=== PATIENT | male | born 1960 | race Caucasian/White ===

== ENCOUNTER 2020-05-18 13:03 | Outpatient (REF) | payer MEDICARE, MEDICAID, SELFPAY ==
[2020-05-18 13:54] LABS: Monocytes Percent Auto 9.1 % (2-11); PLT CLUMP 1; Red Cell Distribution Width 12.4 % (11.0-16.0); SCAN SMEAR FLAG 1
[2020-05-18 13:56] LABS: Basophils Percent Auto 0.5 % (0-2); Eosinophils Absolute Auto 0.2 X10*3/uL (0.0-0.4); Eosinophils Percent Auto 2.4 % (0-4); Hemoglobin 14.9 g/dl (14.0-18.0); Imm Gran Abs Auto 0.04 X10*3/uL (0.00-0.03); Imm Gran Pct Auto 0.5 % (0.0-0.4); Lymphocytes Absolute Auto 1.6 X10*3/uL (1.2-4.9); Lymphocytes Percent Auto 19.5 % (20-40); Mean Corpuscular HGB Conc 33.9 g/dl (31.0-36.0); Mean Corpuscular Hemoglobin 35.6 pg (27.0-33.0); Mean Corpuscular Volume 105.3 fL (80-98); Mean Platelet Volume 11.2 fL (9.4-12.4); Monocytes Absolute Auto 0.8 X10*3/uL (0.1-1.2); Neutrophils Absolute Auto 5.6 X10*3/uL (2.0-8.3); Platelet Count 143 X10*3/uL (160-400); Red Blood Count 4.18 X10*6/uL (4.60-5.80); White Blood Count 8.2 X10*3/uL (4.8-10.8)
[2020-05-18 14:13] LABS: Ethanol < 10 mg/dL
[2020-05-18 14:23] LABS: Alanine Aminotransferase 21 U/L (0-40); Albumin Level 4.6 g/dL (3.5-5.0); Alkaline Phosphatase 125 U/L (39-117); Anion Gap 13 (12-20); Aspartate Amino Transferase 27 U/L (5-37); Bilirubin Total 0.6 mg/dL (0.0-1.0); Blood Urea Nitrogen 17 mg/dL (9-16); C Reactive Protein 0.73 mg/dL (< or = 0.50); Carbon Dioxide 28 mmol/L (22-29); Chloride 105 mmol/L (96-108); Estimated Glomerular Filt Rate > 60; Glucose Random 101 mg/dL (60-115); Potassium 5.1 mmol/l (3.3-5.1); Sodium 141 mmol/L (135-145); Total Protein 7.4 g/dL (6.5-8.0)
[2020-05-18 14:33] LABS: Calcium 10.3 mg/dL (8.4-10.2)
== END 2020-05-18 13:04 | disposition home or self-care (01) ==
LOC: HO.10HDL 13:03
PROVIDERS: Visit Provider Internal Medicine
DX: K21.9 Gastro-esophageal reflux disease without esophagitis (principal); I10 Essential (primary) hypertension; K57.90 Diverticulosis of intestine, part unspecified, without perforation or abscess without bleeding
CPT/HCPCS: 36415; 80053; 80320; 85025; 86140

== ENCOUNTER 2020-08-02 14:03 | Outpatient (REF) | payer MEDICARE, MEDICAID, SELFPAY ==
--- NOTE | 2020-08-02 | XR_ITS ---
EXAMINATION: XR SHOULDER, LEFT CLINICAL INFORMATION: Left shoulder pain. COMPARISON: None TECHNIQUE: AP external rotation, Grashey, scapular Y, and axillary views of the left shoulder. FINDINGS: There is a transverse fracture left mid scapula extending to the glenoid surface. There is no visible acute fracture or dislocation seen. The soft tissues are normal. XR/XR shoulder LT min 2V IMPRESSION: Transverse complete fracture involving the left mid clavicle extending to the glenoid surface. No additional abnormality seen.
[2020-08-06 09:48] LABS: Free Prostate Spec Ag 0.2 ng/mL; Percent Free Prostate Spec Ag 20 % (calc) (>25)
== END 2020-08-02 14:04 | disposition home or self-care (01) ==
LOC: HO.HMGCX 14:03
PROVIDERS: PCP Internal Medicine; Visit Provider Urology
DX: M25.512 Pain in left shoulder (principal); R97.20 Elevated prostate specific antigen [PSA]; Z12.5 Encounter for screening for malignant neoplasm of prostate
CPT/HCPCS: 73030; 84153; 84154

== ENCOUNTER 2020-09-28 12:27 | Outpatient (REF) | payer MEDICARE, MEDICAID, SELFPAY ==
[2020-09-28 13:12] LABS: MANUAL DIFF FLAG NO
[2020-09-28 13:18] LABS: Basophils Percent Auto 0.5 % (0-2); Eosinophils Absolute Auto 0.1 X10*3/uL (0.0-0.4); Eosinophils Percent Auto 1.8 % (0-4); Hematocrit 46.8 % (42-52); Hemoglobin 16.2 g/dl (14.0-18.0); Imm Gran Abs Auto 0.02 X10*3/uL (0.00-0.03); Imm Gran Pct Auto 0.3 % (0.0-0.4); Lymphocytes Absolute Auto 1.3 X10*3/uL (1.2-4.9); Lymphocytes Percent Auto 20.7 % (20-40); Mean Corpuscular HGB Conc 34.6 g/dl (31.0-36.0); Mean Corpuscular Hemoglobin 35.4 pg (27.0-33.0); Mean Corpuscular Volume 102.2 fL (80-98); Mean Platelet Volume 9.8 fL (9.4-12.4); Monocytes Absolute Auto 0.7 X10*3/uL (0.1-1.2); Monocytes Percent Auto 11.1 % (2-11); Neutrophils Percent Auto 65.6 % (45-73); Platelet Count 143 X10*3/uL (160-400); Red Blood Count 4.58 X10*6/uL (4.60-5.80); Red Cell Distribution Width 12.4 % (11.0-16.0)
[2020-09-28 13:48] LABS: Alanine Aminotransferase 33 U/L (0-40); Albumin Level 4.7 g/dL (3.5-5.0); Alkaline Phosphatase 124 U/L (39-117); Anion Gap 14 (12-20); Aspartate Amino Transferase 30 U/L (5-37); Bilirubin Total 0.5 mg/dL (0.0-1.0); Blood Urea Nitrogen 25 mg/dL (9-16); Calcium 9.8 mg/dL (8.4-10.2); Carbon Dioxide 25 mmol/L (22-29); Chloride 107 mmol/L (96-108); Estimated Glomerular Filt Rate > 60; Glucose Random 104 mg/dL (60-115); Potassium 4.7 mmol/L (3.3-5.1); Sodium 141 mmol/L (135-145); Total Protein 7.5 g/dL (6.5-8.0)
== END 2020-09-28 12:28 | disposition home or self-care (01) ==
LOC: HO.LAB 12:27
PROVIDERS: PCP Internal Medicine; Visit Provider Internal Medicine
DX: J44.9 Chronic obstructive pulmonary disease, unspecified (principal); I10 Essential (primary) hypertension
CPT/HCPCS: 36415; 80053; 85025

== ENCOUNTER 2020-10-08 07:59 | Day surgery (SDC) | payer MEDICARE, MEDICAID, SELFPAY ==
[2020-10-04 11:53] VITALS: BMI 20.1
--- NOTE | 2020-10-04 12:38 | HP_ITS ---
DATE OF SERVICE: 10/08/2020 HISTORY OF PRESENT ILLNESS: The patient is a 60-year-old male, who is seen in the office for preop evaluation prior to right eye glaucoma surgery scheduled with Dr. Miles. REVIEW OF SYSTEMS: The patient has lost 6 pounds. No fevers or chills. No headaches or dizziness. No palpitations or chest pain. He does cough and wheeze. He does smoke. He denies shortness of breath. He does have some heartburn. No complaints of nausea, vomiting, diarrhea, or abdominal pain. No dysuria. Some joint pains, especially left elbow bursitis. Speech is normal. No confusion. He does have anxiety. Sleep and appetite are normal. He has seasonal allergies. No complaints of skin rashes. PAST MEDICAL HISTORY: Significant for alcoholism, tobacco use, COPD, diverticulosis with a history of diverticular surgery, anxiety, tremor, gastroesophageal reflux disease, BPH, abdominal hernias, and hay fever, history of left clavicle fracture, insomnia, some anemia, low platelet count of 143 on last count. ALLERGIES: HE LISTS AN ALLERGY TO LEVAQUIN. PRESENT MEDICATIONS: Tamsulosin 0.4 mg, Zetia 10 mg, atorvastatin 80 mg, gemfibrozil 600 mg twice a day, Symbicort 160 one puff twice a day, lamotrigine prescribed by Neurology, Spiriva 1 puff once a day, sertraline 50 mg 1-1/2 a day and the dose may have been adjusted to 150. FAMILY HISTORY: Please see record. SOCIAL HISTORY: He lives alone. He has worked as a palm. PHYSICAL EXAMINATION: GENERAL: He is awake and alert, in no distress. VITAL SIGNS: Temperature 98.8, pulse 73, respirations 12, blood pressure 112/62, O2 sats 96%. Weight is 125, down 6 pounds from the last visit. Height is 5 feet 4 inches. He is well nourished, in no distress. HEENT: Pupils are equal. TMs clear. Pharynx clear. NECK: Supple. No lymph nodes, bruits, or masses. HEART: Sounds, regular rate. LUNGS: Clear, but distant. ABDOMEN: Soft, nontender. He has multiple incisional hernias in the abdominal wall. EXTREMITIES: No clubbing, cyanosis, or edema. He is awake and alert. Cranial nerves are intact. ASSESSMENT AND PLAN: 1. Preop right eye glaucoma surgery, medically stable. 2. Alcoholism. Denies drinking at this time, but not always reliable. 3. Tobacco abuse, chronic. 4. Chronic obstructive pulmonary disease, stable. 5. Diverticulosis, history of surgery. 6. Anxiety, chronic. 7. Weight loss. Follow. 8. Tremor, improved. 9. Gastroesophageal reflux disease, on Prilosec. 10. Benign prostatic hypertrophy, on Flomax. 11. Abdominal incisional hernias. No complaints of pain. 12. Seasonal allergies, [id number] medicines. 13. History of left clavicle fracture. 14. Insomnia. Follow. He completed labs on September 28. Normal electrolytes. BUN 25, creatinine 1, sugar 104. Liver enzymes normal. Alkaline phosphatase 124, albumin 4.7. CBC shows a white count of 6, hemoglobin 16.2, hematocrit 46.8, platelets 143. EKG completed in the office on September 28 shows sinus rhythm, no ischemic changes and appears within normal limits. He is medically stable for the proposed procedure. I will be available if there are any medical issues. Demario Lainez MD FC/MODL / [id number]
--- NOTE | 2020-10-05 13:07 | MHC.SHP ---
Pre-Procedural Eval Section A The patient is an INPATIENT: No The History & Physical has been completed within 30 days and I have reviewed it.: Yes Section B Chief Complaint: Cataract Right Eye Allergies: Allergies Allergy/AdvReac Type Severity Reaction Status Date / Time levofloxacin [From LEVAQUIN] Allergy Severe SEVERE Verified 10/04/20 12:00 PAIN/MUSCLE ACHES METAL Allergy Intermediate SEVERE Uncoded 04/19/20 14:42 ITCHING, REDNESS ENVIRONMENTAL Allergy Mild STUFFY Uncoded 04/19/20 14:42 NOSE, ITCHY Plan Diagnosis/Plan: Unchanged I have reviewed the history and physical and performed a pertinent physical examination on my patient. No changes have occurred unless specified.
[2020-10-08 09:22] VITALS: BP 145/84; PULSE 63; RESP 18; TEMP 36.9; O2SAT 97
[2020-10-08] MEDS: Lactated Ringers 500 ML 50 ML IV (09:25)
[2020-10-08] MEDS: Tetracaine HCl/PF 0.5% Oph Sol 4 ML DROPS 1 DROP EYE-RIGHT (09:27)
[2020-10-08] MEDS: Tropicamide 1 % Ophth Sol 3 ML BTL 1 DROP EYE-RIGHT ×3 (09:29→09:35)
[2020-10-08] MEDS: Phenylephrine HCL 2.5% Oph SoL 2 ML BOTTLE 1 DROP EYE-RIGHT ×3 (09:31→09:37)
--- NOTE | 2020-10-08 09:36 | P.CONAN_ITS ---
HPI - Anesthesia Eval Consult details Narrative: 60 year old male patient here for Right cataract extraction, IOL insertion PMFSH Active Problems Active Problems: All Active Problems (Updated 10/04/20 @ 11:57 by Tigist Gonzalez) Fracture of left shoulder (Acute) Past Medical History Medical History (Updated 10/08/20 @ 10:20 by Maritza Mathur) Arthritis COPD (chronic obstructive pulmonary disease) GERD (gastroesophageal reflux disease) History of anxiety Hx of Parkinson's disease Lumbar herniated disc Smoker Smokers' cough Family History Family History Father Lung cancer Diabetes mellitus Mother Breast cancer Brother Cancer Colon polyps Mesothelioma Paternal Grandmother Colon cancer Family history of problems with anesthesia: No Surgical History Surgical History H/O adenoidectomy H/O colonoscopy History of colectomy Hx of ileostomy History of Problems with Anesthesia: No Social History Social History Are you a primary customer care team coach to a significant other at home: No Do you presently have visiting nurse or other home services: No Alcohol intake: current Alcohol intake frequency: does not drink Smoking Status: Current every day smoker Packs Per Day: 1 Cigarettes Per Day: 20.0 Years Smoked: 46 Smoked in Last 30 Days: Yes Use of substances other than those prescribed or required for medical reasons: No Have you been hit, kicked, punched, or otherwise hurt by someone within the past year? If so, by whom?: No Advance Directives Information Provided: No Recently lost weight without trying: No Meds Allergies Allergy/AdvReac Type Severity Reaction Status Date / Time levofloxacin [From LEVAQUIN] Allergy Severe SEVERE Verified 10/04/20 12:00 PAIN/MUSCLE ACHES METAL Allergy Intermediate SEVERE Uncoded 04/19/20 14:42 ITCHING, REDNESS ENVIRONMENTAL Allergy Mild STUFFY Uncoded 04/19/20 14:42 NOSE, ITCHY Active Medications: Current Medications Generic Name Dose Route Start Last Admin Trade Name Freq PRN Reason Stop Dose Admin Sodium Chloride 500 mls @ 50 mls/hr 10/08/20 06:00 Ns IV 10/08/20 15:59 .Q10H JANA Lactated Ringer's 500 mls @ 50 mls/hr 10/08/20 07:15 10/08/20 09:25 Lr IV 50 mls/hr .Q10H JANA Administration Povidone Iodine 1 appl 10/08/20 09:15 Povidone Iodine 5 % Ophth Soln 30 Ml Bottle EYE-RIGHT PREOP PRN Pre-Op Surgical Implant Prophy Home Medications Medication Instructions Recorded Confirmed Last Taken Type atorvastatin 80 mg tablet 80 mg PO DAILY 07/20/20 10/04/20 10/08/20 History budesonide-formoterol HFA 80 1 inh INHALATION BID 07/20/20 10/04/20 10/08/20 History mcg-4.5 mcg/actuation aerosol inhaler ezetimibe 10 mg tablet 10 mg PO DAILY 07/20/20 10/04/20 10/08/20 History gemfibrozil 600 mg tablet 600 mg PO BID 07/20/20 10/04/20 10/08/20 History ibuprofen 800 mg tablet 800 mg PO BID 07/20/20 10/04/20 Unknown History lamotrigine 200 mg tablet 200 mg PO DAILY 07/20/20 10/04/20 10/08/20 History omeprazole 20 mg capsule,delayed 20 mg PO QAM 07/20/20 10/04/20 Unknown History release propranolol 20 mg tablet 20 mg PO DAILY 07/20/20 10/04/20 10/08/20 History sertraline 100 mg tablet 100 mg PO DAILY 07/20/20 10/04/20 10/08/20 History temazepam 30 mg capsule 30 mg PO BEDTIME 07/20/20 10/04/20 Unknown History Exam Exam Date and Time: October 08, 2020 0936 Height,Weight and Vital Signs: Height 5 ft 6 in Weight 56.699 kg Last Vital Signs Temp 98.4 F 10/08/20 09:22 Pulse 63 10/08/20 09:22 Resp 18 10/08/20 09:22 BP 145/84 H 10/08/20 09:22 Pulse Ox 97 10/08/20 09:22 Airway Mallampati Class: II TM Dist: >3cm Neck ROM: Full Heart: RRR Lungs: Connor wheezes Assessment and Plan Assessment Anesthesia Assessment: Anesthesia Plan Discussed and Chart Reviewed Final Anesthetic Review NPO: Yes ASA Class: II Final Preanesthetic Review: No Changes in Pt Med Stat, Meds/Allgs Chart Reviewed, Consent Obtained/Reviewed and Anes Risks/Benef Reviewed Patient Risk: Intermediate Procedure Risk: Low Assessment/Block/Sedation in SS: Assess/Block/Sedation-SS Anesthetic Plan Anesthetic Plan: MAC: Disposition: Standard PACU
--- NOTE | 2020-10-08 10:36 | HO.PNOPHT ---
Ophthalmology Procedure Procedure Date of Service: 10/08/20 Ophthalmology Viscoelastic: Healon Duet Dual Pack Pro Ophthalmology Lenses: TECNIS ZXR00 (18) Procedure Notes: PREOPERATIVE DIAGNOSIS: Decreased visual acuity right eye secondary to cataract POSTOPERATIVE DIAGNOSIS: Same PROCEDURE: Right cataract extraction with multifocal intraocular lens insertion SURGEON: Christofer Miles M.D. ANESTHESIA: Topical/MAC ESTIMATED BLOOD LOSS: None COMPLICATIONS: None After obtaining informed consent, the patient was brought to the operating room suite and placed in the supine position. After adequate sedation per anesthesia, topical drops of Tetracaine were given to the right eye. The eye was then prepped and draped in the usual sterile fashion. The operating room microscope was then positioned over the operative eye and a lid speculum placed. A paracentesis was created. Viscoelastic was then instilled into the anterior chamber. A three plane incision was then created temporally, utilizing a 2.85 mm keratome. Capsulotomy forceps were then utilized to create a circular tear capsulotomy. Hydrodissection and hydrodelineation were carried out until adequate mobilization of the nucleus occurred. Phacoemulsification was then utilized to remove the dense central nucleus followed by removal of the cortical material utilizing the automated aspiration irrigation unit. Viscoelastic was instilled into the posterior capsular bag followed by placement of a multifocal posterior chamber intraocular lens without difficulty. The residual Viscoelastic was then removed utilizing the automated IA machine. The wound was checked and found to be watertight. The patient tolerated the procedure well and the lid speculum was removed. Intracameral injection of Vigamox 0.1 mL followed by a subtenon injection of Kenalog-40 0.2 mL were administered. The patient will be seen in the a.m.
[2020-10-08 10:39] VITALS: BP 143/74; PULSE 64; RESP 20; TEMP 37.2; O2SAT 98
== END 2020-10-08 11:07 | disposition home or self-care (01) ==
PROVIDERS: PCP Internal Medicine; Visit Provider Ophthalmology
PROC: (CPT 66984; principal; 2020-10-08 10:20)
DX: H25.11 Age-related nuclear cataract, right eye (principal); H52.4 Presbyopia; H35.033 Hypertensive retinopathy, bilateral; H05.20 Unspecified exophthalmos; J44.9 Chronic obstructive pulmonary disease, unspecified; I10 Essential (primary) hypertension; R25.1 Tremor, unspecified; F10.20 Alcohol dependence, uncomplicated; F17.210 Nicotine dependence, cigarettes, uncomplicated; J30.2 Other seasonal allergic rhinitis; Z79.51 Long term (current) use of inhaled steroids; Z79.899 Other long term (current) drug therapy; Z88.1 Allergy status to other antibiotic agents
CPT/HCPCS: 66984; J2250; J3010; J3300; V2788

== ENCOUNTER 2020-10-31 10:13 | Outpatient (REF) | payer MEDICARE, MEDICAID, SELFPAY ==
--- NOTE | ~2020-10-31 | XR_ITS ---
EXAMINATION: XR CHEST CLINICAL INFORMATION: COPD. COMPARISON: None TECHNIQUE: 2 views of the chest were obtained. FINDINGS: No significant abnormality is noted involving the heart, lungs, mediastinum, bony thorax or soft tissues. XR/XR chest 2V IMPRESSION: Unremarkable chest examination.
[2020-10-31 11:09] LABS: MANUAL DIFF FLAG NO
[2020-10-31 11:26] LABS: Basophils Percent Auto 0.5 % (0-2); Eosinophils Absolute Auto 0.2 X10*3/uL (0.0-0.4); Hematocrit 46.8 % (42-52); Hemoglobin 15.7 g/dl (14.0-18.0); Imm Gran Abs Auto 0.06 X10*3/uL (0.00-0.03); Imm Gran Pct Auto 0.7 % (0.0-0.4); Lymphocytes Absolute Auto 1.8 X10*3/uL (1.2-4.9); Lymphocytes Percent Auto 21.9 % (20-40); Mean Corpuscular HGB Conc 33.5 g/dl (31.0-36.0); Mean Corpuscular Hemoglobin 34.4 pg (27.0-33.0); Mean Corpuscular Volume 102.4 fL (80-98); Mean Platelet Volume 10.1 fL (9.4-12.4); Monocytes Absolute Auto 0.9 X10*3/uL (0.1-1.2); Monocytes Percent Auto 11.4 % (2-11); Neutrophils Absolute Auto 5.1 X10*3/uL (2.0-8.3); Neutrophils Percent Auto 63.5 % (45-73); Platelet Count 103 X10*3/uL (160-400); Red Blood Count 4.57 X10*6/uL (4.60-5.80); Red Cell Distribution Width 12.7 % (11.0-16.0); White Blood Count 8.1 X10*3/uL (4.8-10.8)
[2020-10-31 12:00] LABS: Thyroid Stimulating Hormone 0.47 uIU/mL (0.32-4.0)
[2020-10-31 12:03] LABS: Alanine Aminotransferase 31 U/L (0-40); Albumin Level 4.9 g/dL (3.5-5.0); Alkaline Phosphatase 116 U/L (39-117); Anion Gap 17 (12-20); Aspartate Amino Transferase 34 U/L (5-37); Bilirubin Total 0.4 mg/dL (0.0-1.0); Blood Urea Nitrogen 22 mg/dL (9-16); Calcium 9.8 mg/dL (8.4-10.2); Carbon Dioxide 22 mmol/L (22-29); Chloride 104 mmol/L (96-108); Estimated Glomerular Filt Rate > 60; Glucose Random 87 mg/dL (60-115); Potassium 4.4 mmol/L (3.3-5.1); Sodium 139 mmol/L (135-145); Total Protein 7.6 g/dL (6.5-8.0)
== END 2020-10-31 10:14 | disposition home or self-care (01) ==
LOC: HO.HMGCX 10:13
PROVIDERS: PCP Internal Medicine; Visit Provider Internal Medicine
DX: E78.5 Hyperlipidemia, unspecified (principal); J44.9 Chronic obstructive pulmonary disease, unspecified; R63.4 Abnormal weight loss; N40.0 Benign prostatic hyperplasia without lower urinary tract symptoms
CPT/HCPCS: 36415; 71046; 80053; 84443; 85025

== ENCOUNTER 2020-11-15 11:55 | Outpatient (REF) | payer MEDICARE, MEDICAID, SELFPAY ==
[2020-11-15 14:41] LABS: Cholesterol 209 mg/dL; HDL Cholesterol 47 mg/dL; LDL Cholesterol Calculated 131 mg/dl; Triglycerides 159 mg/dL
== END 2020-11-15 11:56 | disposition home or self-care (01) ==
LOC: HO.10HDL 11:55
PROVIDERS: Visit Provider Internal Medicine
DX: E78.5 Hyperlipidemia, unspecified (principal)
CPT/HCPCS: 36415; 80061

== ENCOUNTER → 2020-12-06 13:34 | Outpatient (BNVA) | payer MEDICARE, MEDICAID, SELFPAY | PROVIDERS: Visit Provider Urology | DX: Z13.89 Encounter for screening for other disorder (principal) | CPT/HCPCS: Q3014 ==

== ENCOUNTER 2021-01-02 02:10 | Emergency (ER) | payer MEDICARE, MEDICAID, SELFPAY ==
--- NOTE | ~2021-01-02 | CT_ITS ---
EXAMINATION: NONCONTRAST HEAD CT NONCONTRAST MAXILLOFACIAL CT NONCONTRAST CERVICAL SPINE CT INDICATION INFORMATION: Question of fall COMPARISON: MRI 08/31/2018 TECHNIQUE: Separate noncontrast CT examinations of the head, maxillofacial bones, and cervical spine were performed. Coronal and sagittal images were created for each examination at the technologist workstation. DOSE LOWERING TECHNIQUES: This CT examination was performed using dose optimization techniques as appropriate, variously including the following: - Automated exposure control - Adjustment of mA and/or kV according to patient size (this includes techniques or standardized protocols for targeted exams were dose is matched to indication/reason for exam; i.e. extremities or head) - Use of iterative reconstruction technique DLP: 1312 mGy-cm FINDINGS: Head: There is no evidence of acute intracranial hemorrhage or territorial infarction. No abnormal mass-effect or midline shift is seen. Watt to white matter differentiation is well preserved. No extra-axial fluid collections are identified. The ventricles are normal in size. Mild volume loss is noted. The osseous structures and soft tissues are normal. The mastoid air cells are well aerated. Maxillofacial: There is a mildly displaced fracture of the left orbital floor. Most of the left maxillary sinus is opacified with blood products. Multiple foci of gas are present in the retro-orbital region adjacent to the inferior, lateral, and medial rectus muscles. The inferior margin of the inferior rectus muscle abuts the fracture plane. There is minimal stranding of the retrobulbar fat without focal hematoma. There is surrounding left periorbital hematoma. The remaining paranasal sinuses are well aerated. There is leftward deviation of the nasal septum. The mandibular condyles are well-seated in the condylar fossa. Cervical spine: There is grade 1 anterolisthesis of C3 on C4 and C4 on C5 which is favored to be chronic/degenerative in nature. Vertebral body heights are maintained. There is disc space narrowing of the lower cervical spine with associated endplate osteophytes. Multilevel facet arthropathy is most extensive in the mid cervical spine. No evidence of acute fracture. No prevertebral soft tissue swelling. Visualized portions of the lung apices are unremarkable. The thyroid gland is unremarkable. CT/CT cervical spine wo con IMPRESSION: 1. Mildly displaced left orbital floor fracture with blood products in the left maxillary sinus. Multiple foci of gas adjacent to the medial, inferior, and lateral rectus muscles. No focal retrobulbar hematoma. Periorbital soft tissue swelling. 2. No acute intracranial findings. 3. No acute findings identified in the cervical spine. Multilevel degenerative changes.
[2021-01-02 02:29] VITALS: BMI 20.5
[2021-01-02 02:35] VITALS: BP 101/62; PULSE 93; RESP 16; TEMP 36.9; O2SAT 95
--- NOTE | 2021-01-02 03:29 | ECG_ITS ---
Test Reason : HEAD INJURY Blood Pressure : / mmHG Vent. Rate : 071 BPM Atrial Rate : 071 BPM P-R Int : 126 ms QRS Dur : 086 ms QT Int : 388 ms P-R-T Axes : 046 019 040 degrees QTc Int : 421 ms Normal sinus rhythm Normal ECG When compared with ECG of 27-DEC-2017 12:03, No significant change was found Referred By: Mariola Antoine Electronically Signed By:Filiberto Lopez
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
--- NOTE | 2021-01-02 03:47 | PC.NURSE ---
PT RETURNED FROM CT, FACE AND WOUND CLEANED WITH SALINE BY PCT. AWAITING FURTHER TESTING AND RESULTS. AWARE OF PLAN OF CARE.
[2021-01-02 03:53] VITALS: BP 103/58; PULSE 76; RESP 16; O2SAT 95
[2021-01-02 04:15] LABS: MANUAL DIFF FLAG NO
[2021-01-02 04:20] LABS: Basophils Percent Auto 0.4 % (0-2); Eosinophils Absolute Auto 0.1 X10*3/uL (0.0-0.4); Eosinophils Percent Auto 1.6 % (0-4); Hematocrit 44.2 % (42-52); Hemoglobin 15.3 g/dl (14.0-18.0); Imm Gran Abs Auto 0.04 X10*3/uL (0.00-0.03); Imm Gran Pct Auto 0.8 % (0.0-0.4); Lymphocytes Absolute Auto 1.6 X10*3/uL (1.2-4.9); Lymphocytes Percent Auto 32.4 % (20-40); Mean Corpuscular HGB Conc 34.6 g/dl (31.0-36.0); Mean Corpuscular Hemoglobin 35.7 pg (27.0-33.0); Mean Corpuscular Volume 103.3 fL (80-98); Mean Platelet Volume 10.7 fL (9.4-12.4); Monocytes Absolute Auto 0.7 X10*3/uL (0.1-1.2); Monocytes Percent Auto 14.5 % (2-11); Neutrophils Absolute Auto 2.5 X10*3/uL (2.0-8.3); Neutrophils Percent Auto 50.3 % (45-73); Red Blood Count 4.28 X10*6/uL (4.60-5.80); White Blood Count 4.9 X10*3/uL (4.8-10.8)
[2021-01-02 04:24] LABS: Platelet Count 82 X10*3/uL (160-400)
[2021-01-02 04:28] LABS: INTERNATIONAL NORM RATIO 0.9 (0.9-1.1); Prothrombin Time 10.8 SEC (10.8-13.0)
--- NOTE | 2021-01-02 04:31 | PC.NURSE ---
PT RESTING IN BED EYES CLOSED, EASILY AWOKEN. DENIES PAIN. AWAITING RESULTS. AWARE OF PLAN OF CARE.
[2021-01-02 04:34] LABS: Ethanol 158 mg/dL; Lactic Acid 1.9 mmol/L (0.5-2.0)
[2021-01-02 04:38] LABS: Alanine Aminotransferase 38 U/L (0-40); Albumin Level 4.4 g/dL (3.5-5.0); Alkaline Phosphatase 102 U/L (39-117); Anion Gap 18 (12-20); Aspartate Amino Transferase 48 U/L (5-37); Bilirubin Direct 0.2 mg/dL (0.0-0.5); Bilirubin Total 0.3 mg/dL (0.0-1.0); Blood Urea Nitrogen 17 mg/dL (9-16); Calcium 9.8 mg/dL (8.4-10.2); Carbon Dioxide 17 mmol/L (22-29); Chloride 110 mmol/L (96-108); Creatinine Clr Calc Pharmacy 53.6; Estimated Glomerular Filt Rate > 60; Glucose Random 101 mg/dL (60-115); Potassium 3.6 mmol/L (3.3-5.1); Sodium 141 mmol/L (135-145); Total Protein 7.1 g/dL (6.5-8.0)
[2021-01-02 04:44] LABS: Partial Thromboplastin Time 39.4 SEC (24.1-38.0)
[2021-01-02 07:12] VITALS: BP 125/74; PULSE 74; RESP 16; TEMP 36.6; O2SAT 95
--- NOTE | 2021-01-02 07:16 | PC.NURSE ---
pt is a/o x 3 no sob/seble noted skin pink warm dry speaks in full sentences. amb (i) gait is slightly unsteady. l eye is purple and swollen with scabbed area noted to the side of left eye. pt is aware of plan of care for transfer to [facility] [place] [place] for eval/tx via ambulance.
[2021-01-02 07:31] LABS: Glucose Urine UA NEG (NEG); Leukocyte Esterase Urine NEG (NEG); Nitrite Urine NEG (NEG); PH 6.5 (5.0-8.0); Specific Gravity - Urine 1.025 (1.005-1.025); Urine Blood TRACE (NEG); Urine Ketones NEG (NEG); Urine Protein 1+ MG/DL (NEG-TRACE)
[2021-01-02 07:35] LABS: Appearance Urine HAZY; Color Urine YELLOW
[2021-01-02 07:44] LABS: Amorphous Sediment Urine 1+ /LPF; Mucus Urine 1+ /LPF; Squamous Epithelial Cell Urine 1+ /LPF; WBC Urine 0 /HPF (0-4)
[2021-01-02 08:09] LABS: Amphetamine Screen Urine Not Detected (Not Detect); Barbiturates, Urine Not Detected (Not Detect); Benzodiazepines Screen Urine Not Detected (Not Detect); Cannabinoid Screen Urine Not Detected (Not Detect); Cocaine Screen Urine Not Detected (Not Detect); Opiate Screen Urine Not Detected (Not Detect); Phencyclidine Screen Urine Not Detected (Not Detect)
== END 2021-01-02 07:45 | disposition short-term general hospital (02) ==
PROVIDERS: Emergency Provider Emergency Medicine
DX: S02.32XA Fracture of orbital floor, left side, initial encounter for closed fracture (principal); S00.81XA Abrasion of other part of head, initial encounter; S01.81XA Laceration without foreign body of other part of head, initial encounter; S40.022A Contusion of left upper arm, initial encounter; S40.021A Contusion of right upper arm, initial encounter; X58.XXXA Exposure to other specified factors, initial encounter; F10.120 Alcohol abuse with intoxication, uncomplicated; Y90.6 Blood alcohol level of 120-199 mg/100 ml; F41.9 Anxiety disorder, unspecified; G20 Parkinson's disease; F17.210 Nicotine dependence, cigarettes, uncomplicated; Y93.84 Activity, sleeping; Y92.013 Bedroom of single-family (private) house as the place of occurrence of the external cause; Y99.9 Unspecified external cause status; Z79.899 Other long term (current) drug therapy
CPT/HCPCS: 36415; 70450; 70486; 72125; 80048; 80076; 80307; 81001; 82077; 83605; 85025; 85610; 85730; 93005; 99285

== ENCOUNTER 2021-02-14 11:58 | Outpatient (REF) | payer MEDICARE, MEDICAID, SELFPAY ==
[2021-02-14 12:21] LABS: MANUAL DIFF FLAG NO
[2021-02-14 12:23] LABS: Basophils Percent Auto 0.3 % (0-2); Eosinophils Absolute Auto 0.1 X10*3/uL (0.0-0.4); Eosinophils Percent Auto 1.2 % (0-4); Hematocrit 40.3 % (42-52); Hemoglobin 13.9 g/dl (14.0-18.0); Imm Gran Abs Auto 0.04 X10*3/uL (0.00-0.03); Imm Gran Pct Auto 0.7 % (0.0-0.4); Lymphocytes Absolute Auto 1.1 X10*3/uL (1.2-4.9); Lymphocytes Percent Auto 19.1 % (20-40); Mean Corpuscular HGB Conc 34.5 g/dl (31.0-36.0); Mean Corpuscular Hemoglobin 37.6 pg (27.0-33.0); Mean Corpuscular Volume 108.9 fL (80-98); Mean Platelet Volume 9.8 fL (9.4-12.4); Monocytes Absolute Auto 0.7 X10*3/uL (0.1-1.2); Monocytes Percent Auto 12.6 % (2-11); Neutrophils Absolute Auto 3.9 X10*3/uL (2.0-8.3); Neutrophils Percent Auto 66.1 % (45-73); Platelet Count 110 X10*3/uL (160-400); Red Cell Distribution Width 14.8 % (11.0-16.0); White Blood Count 5.9 X10*3/uL (4.8-10.8)
[2021-02-14 12:39] LABS: Ammonia 31 umol/L (13-55)
[2021-02-14 12:43] LABS: Ethanol < 10 mg/dL
[2021-02-14 12:47] LABS: Alanine Aminotransferase 35 U/L (0-40); Albumin Level 4.6 g/dL (3.5-5.0); Alkaline Phosphatase 124 U/L (39-117); Anion Gap 15 (12-20); Aspartate Amino Transferase 48 U/L (5-37); Bilirubin Total 0.7 mg/dL (0.0-1.0); Blood Urea Nitrogen 34 mg/dL (9-16); C Reactive Protein 0.07 mg/dL (< or = 0.50); Calcium 10.8 mg/dL (8.4-10.2); Carbon Dioxide 23 mmol/L (22-29); Chloride 105 mmol/L (96-108); Estimated Glomerular Filt Rate 58; Glucose Random 108 mg/dL (60-115); Potassium 4.1 mmol/L (3.3-5.1); Sodium 139 mmol/L (135-145); Total Protein 7.5 g/dL (6.5-8.0)
== END 2021-02-14 11:59 | disposition home or self-care (01) ==
LOC: HO.10HDL 11:58
PROVIDERS: Visit Provider Internal Medicine
DX: R25.1 Tremor, unspecified (principal); R63.4 Abnormal weight loss; E78.00 Pure hypercholesterolemia, unspecified
CPT/HCPCS: 36415; 80053; 82077; 82140; 85025; 86140

== ENCOUNTER 2021-02-22 16:59 | Emergency (ER) | payer MEDICARE, MEDICAID, SELFPAY ==
--- NOTE | ~2021-02-22 | XR_ITS ---
EXAMINATION: XR CHEST CLINICAL INFORMATION: Fall COMPARISON: 10/31/2020 TECHNIQUE: 2 views of the chest were obtained. FINDINGS: The lungs are hyperinflated suggesting underlying COPD. No acute infiltrates, effusions or lung masses are seen sclerotic density seen overlying the region of the right shoulder probably related to prior scapular fracture. No acute osseous abnormality is seen in the bony thorax. A thoracic scoliosis is present. XR/XR chest 2V IMPRESSION: No acute intrathoracic disease
--- NOTE | ~2021-02-22 | CT_ITS ---
EXAMINATION: CT HEAD WITHOUT CONTRAST CLINICAL INFORMATION: Fall with hematoma and confusion. COMPARISON: Head CT January 02, 2021. TECHNIQUE: Contiguous axial imaging was performed from the skull base to vertex without intravenous administration of contrast. This CT examination was performed using dose optimization techniques as appropriate, variously including the following: *Automated exposure control *Adjustment of mA and/or kV according to patient size (this includes techniques or standardized protocols for targeted exams where dose is matched to indication/reason for exam; i.e. extremities or head) *Use of iterative reconstruction technique FINDINGS: There is global cerebral volume loss and there is mild chronic microangiopathy. There is no intracranial hemorrhage, hydrocephalus, extra-axial surface collection, midline shift, or other herniation pattern. Watt to white matter differentiation is diffusely maintained without evidence of an evolved acute territorial infarct. The basilar cisterns are preserved. There is a high right parietal scalp hematoma/laceration. No acute osseous abnormality. A chronic left orbital floor fracture is again noted coursing through the left infraorbital foramen. The paranasal sinuses and the mastoid air cells are well aerated. CT/CT head/brain wo con IMPRESSION: - No acute intracranial abnormality. - There is a high right parietal scalp hematoma/laceration. - A chronic left orbital floor fracture is again noted coursing through the left infraorbital foramen.
[2021-02-22 17:31] VITALS: BP 90/55; PULSE 72; RESP 18; TEMP 36.6; O2SAT 97; BMI 17.9
--- NOTE | 2021-02-22 17:35 | ECG_ITS ---
Test Reason : FALL Blood Pressure : / mmHG Vent. Rate : 056 BPM Atrial Rate : 056 BPM P-R Int : 146 ms QRS Dur : 090 ms QT Int : 422 ms P-R-T Axes : 063 027 042 degrees QTc Int : 407 ms Sinus bradycardia Otherwise normal ECG When compared with ECG of 02-JAN-2021 03:52, No significant change was found Referred By: Stacy Melgar Electronically Signed By:AMI TRUJILLO MD
[2021-02-22 18:23] LABS: MANUAL DIFF FLAG NO
[2021-02-22 18:30] LABS: Basophils Percent Auto 0.4 % (0-2); Eosinophils Absolute Auto 0.1 X10*3/uL (0.0-0.4); Eosinophils Percent Auto 1.3 % (0-4); Hematocrit 39.9 % (42-52); Hemoglobin 13.7 g/dl (14.0-18.0); Imm Gran Abs Auto 0.07 X10*3/uL (0.00-0.03); Imm Gran Pct Auto 1.3 % (0.0-0.4); Lymphocytes Absolute Auto 1.4 X10*3/uL (1.2-4.9); Lymphocytes Percent Auto 27.3 % (20-40); Mean Corpuscular HGB Conc 34.3 g/dl (31.0-36.0); Mean Corpuscular Hemoglobin 37.3 pg (27.0-33.0); Mean Corpuscular Volume 108.7 fL (80-98); Mean Platelet Volume 11.2 fL (9.4-12.4); Monocytes Absolute Auto 0.5 X10*3/uL (0.1-1.2); Monocytes Percent Auto 10.2 % (2-11); Neutrophils Absolute Auto 3.1 X10*3/uL (2.0-8.3); Neutrophils Percent Auto 59.5 % (45-73); Red Blood Count 3.67 X10*6/uL (4.60-5.80); Red Cell Distribution Width 14.4 % (11.0-16.0); White Blood Count 5.2 X10*3/uL (4.8-10.8)
[2021-02-22 18:31] LABS: Platelet Count 72 X10*3/uL (160-400)
[2021-02-22] MEDS: Lactated Ringers 1,000 ML 999 ML IV ×2 (18:32→18:45)
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
[2021-02-22 18:48] LABS: Lactic Acid 1.5 mmol/L (0.5-2.0)
[2021-02-22 18:54] LABS: Alanine Aminotransferase 42 U/L (0-40); Albumin Level 4.5 g/dL (3.5-5.0); Alkaline Phosphatase 110 U/L (39-117); Anion Gap 14 (12-20); Aspartate Amino Transferase 58 U/L (5-37); Bilirubin Total 0.3 mg/dL (0.0-1.0); Blood Urea Nitrogen 15 mg/dL (9-16); Calcium 9.7 mg/dL (8.4-10.2); Carbon Dioxide 22 mmol/L (22-29); Chloride 111 mmol/L (96-108); Creatinine Clr Calc Pharmacy 64.6; Estimated Glomerular Filt Rate > 60; Glucose Random 84 mg/dL (60-115); Potassium 4.3 mmol/L (3.3-5.1); Sodium 143 mmol/L (135-145); Total Protein 7.3 g/dL (6.5-8.0)
[2021-02-22 18:56] LABS: B Type Natriuretic Peptide 81 pg/mL (<100); Troponin-I High Sensitivity 5.2 ng/L (<3.5-35.0)
[2021-02-22 20:14] VITALS: BP 100/61; PULSE 74; RESP 14; O2SAT 98
[2021-02-22 20:45] LABS: Ammonia 25 umol/L (13-55)
[2021-02-22 20:52] LABS: Ethanol 195 mg/dL
[2021-02-22 22:00] VITALS: BP 110/72; PULSE 77; RESP 15; O2SAT 98
== END 2021-02-22 23:19 | disposition home or self-care (01) ==
PROVIDERS: Physician Assistant; Emergency Provider Emergency Medicine; PCP Internal Medicine
DX: S09.90XA Unspecified injury of head, initial encounter (principal); G44.309 Post-traumatic headache, unspecified, not intractable; J44.9 Chronic obstructive pulmonary disease, unspecified; R07.81 Pleurodynia; F17.210 Nicotine dependence, cigarettes, uncomplicated; V17.4XXA Pedal cycle driver injured in collision with fixed or stationary object in traffic accident, initial encounter; Y93.9 Activity, unspecified; Y92.410 Unspecified street and highway as the place of occurrence of the external cause; Y99.9 Unspecified external cause status; Z79.899 Other long term (current) drug therapy; Z71.6 Tobacco abuse counseling
CPT/HCPCS: 36415; 70450; 71046; 80053; 82077; 82140; 83605; 83880; 84484; 85025; 87040; 93005; 99284